=== PATIENT | male | born 1970 | race African-American/Black ===

== ENCOUNTER 2023-08-25 20:05 | Emergency (ER) | payer MEDICAID, OTHER ==
[~2023-08-25] VITALS: Ht 190.5 cm; Wt 77.0 kg
[2023-08-25 20:05] VITALS: BP 156/90; PULSE 81; RESP 18; O2SAT 98
[2023-08-25] MEDS ORDERED: ACE3T PO (22:20)
[2023-08-25] MEDS ORDERED: HYDR-4902 PO (22:21)
== END 2023-08-25 22:38 | disposition home or self-care (01) ==
LOC: ER 20:05
DX: S62.632A Displaced fracture of distal phalanx of right middle finger, initial encounter for closed fracture (principal); I10 Essential (primary) hypertension; W22.8XXA Striking against or struck by other objects, initial encounter; Y93.89 Activity, other specified; Y92.89 Other specified places as the place of occurrence of the external cause; Y99.8 Other external cause status
CPT/HCPCS: 29130; 73140

== ENCOUNTER 2023-08-27 03:04 | Emergency (ER) | payer MEDICAID ==
[~2023-08-27] VITALS: Ht 190.5 cm; Wt 77.0 kg
[2023-08-27 03:04] VITALS: BP 133/89; PULSE 77; RESP 20; O2SAT 97
[~2023-08-27 03:04] MED LIST: HYDR-4902 PO
[2023-08-27] MEDS: KETOROLAC TROMETH 60MG/2ML VIAL IM ONE (03:54)
== END 2023-08-27 03:29 | disposition home or self-care (01) ==
LOC: ER 03:04
DX: S62.632A Displaced fracture of distal phalanx of right middle finger, initial encounter for closed fracture (principal); I10 Essential (primary) hypertension; W26.9XXA Contact with unspecified sharp object(s), initial encounter; Y93.89 Activity, other specified; Y92.89 Other specified places as the place of occurrence of the external cause; Y99.8 Other external cause status
CPT/HCPCS: 96372; 99283; J1885

== ENCOUNTER 2023-11-08 04:30 | Emergency (ER) | payer MEDICAID, OTHER ==
[~2023-11-08] VITALS: Ht 193 cm; Wt 71.2 kg
[2023-11-08 04:56] LABS: Urine Bacteria None Seen /hpf (None Seen)
[2023-11-08 05:19] LABS: Urine Blood Negative /uL (Negative); Urine Clarity Clear (Clear); Urine Color Light-Yellow (Yellow); Urine Protein, UAD Negative (Negative); Urine Urobilinogen Normal (Negative); Urine WBC 1 /hpf (0 - 3)
[2023-11-08 05:35] LABS: Chloride 103 mmol/L (98-107); Potassium 4.2 mmol/L (3.5-5.1); Sodium 139 mmol/L (136-145)
[2023-11-08 05:36] LABS: Anion Gap 6 (5-15); Calcium 9.9 mg/dL (8.7-10.4); Carbon Dioxide 30 mmol/L (20-30)
[2023-11-08 05:41] LABS: BUN/Creatinine Ratio 9.3 (10.0-20.0); Blood Urea Nitrogen 10 mg/dL (9-23); Glucose 97 mg/dL (74-106)
[2023-11-08 06:02] LABS: Basophils # (auto) 0 10 ^3/uL (0-0.2); Basophils % (auto) 0.6 % (0.0-2.0); Eosinophils # (auto) 0.1 10 ^3/uL (0-0.8); Eosinophils % (auto) 3.1 % (0.0-7.0); Hematocrit 49.7 % (41.0-53.0); Hemoglobin 16.5 g/dL (13.5-17.5); Lymphocytes # (auto) 1.3 10 ^3/uL (0.4-5.4); Mean Corpuscular Hgb Conc. 33.2 g/dL (32.0-36.0); Mean Corpuscular Volume 87.3 fL (80.0-100.0); Monocytes # (auto) 0.5 10 ^3/uL (0-1.3); Monocytes % (auto) 13.4 % (0.0-12.0); Neutrophils % (auto) 49.9 % (37.0-80.0); Nucleated Red Blood Cells % 0.5 %; Red Cell Distribution Width 13.4 % (11.8-14.3)
[2023-11-08] MEDS ORDERED: DOCU-94 PO (07:45)
[2023-11-08 08:03] VITALS: BP 149/93
[2023-11-08 08:04] VITALS: PULSE 65; RESP 14; O2SAT 99
== END 2023-11-08 08:06 | disposition home or self-care (01) ==
LOC: ER 04:30
DX: K59.00 Constipation, unspecified (principal); I10 Essential (primary) hypertension; F15.90 Other stimulant use, unspecified, uncomplicated; Z98.890 Other specified postprocedural states; Z88.8 Allergy status to other drugs, medicaments and biological substances; Z79.899 Other long term (current) drug therapy
CPT/HCPCS: 36415; 74176; 80048; 81001; 85025